=== PATIENT | male | born 1975 | race African-American/Black ===

== ENCOUNTER 2019-03-27 18:45 | Emergency (ER) | payer MEDICAID ==
[~2019-03-27] VITALS: Ht 180.3 cm; Wt 102.0 kg
[2019-03-27] MEDS ORDERED: MORPHINE SULFATE 4 MG/ML CPJ (NOT FOR IM USE) IV STA (20:11)
[2019-03-27] MEDS ORDERED: SODIUM CHLORIDE 0.9% 1,000 ML IV ONE (20:11)
[2019-03-27] MEDS ORDERED: FAMOTIDINE 20MG/2ML VIAL IV STA (20:11)
[2019-03-27] MEDS ORDERED: ONDANSETRON HCL 4MG/2ML INJ IV STA (20:11)
[2019-03-27 21:24] LABS: BASOPHILS % 0.6 % (0.0-2.0); EOSINOPHILS % 0.1 % (0.0-5.0); HEMATOCRIT. 35.2 % (42.0-52.0); HEMOGLOBIN. 11.5 g/dL (14.0-18.0); LYMPHOCYTES % 19.5 % (20.0-50.0); MEAN CORPUSCULAR VOLUME 85.6 fL (80.0-94.0); MEAN PLATELET VOLUME 8.7 fl (7.4-10.4); MONOCYTES % 4.9 % (2.0-8.0); NEUTROPHILS % 74.9 % (40.0-76.0); PLATELET 214 x1000/uL (130-400); RED BLOOD CELL COUNT 4.11 mill/uL (4.7-6.1); RED CELL DISTRIBUTION WIDTH 13.7 % (11.6-14.6)
[2019-03-27 21:27] LABS: CHLORIDE 109 mEq/L (98-107)
[2019-03-27 21:31] LABS: ETHANOL BLOOD < 10 mg/dL
[2019-03-27] MEDS ORDERED: SODIUM CHLORIDE 0.9% 1,000 ML IV NR (21:48)
[2019-03-27] MEDS ORDERED: IOHEXOL-300 100 ML BOTTLE ONE (22:23)
[2019-03-27 23:38] VITALS: BP 112/76
== END 2019-03-28 02:04 | disposition home or self-care (01) ==
LOC: ER 19:20
DX: R10.0 Acute abdomen (principal); E86.0 Dehydration; K44.9 Diaphragmatic hernia without obstruction or gangrene; D64.9 Anemia, unspecified
CPT/HCPCS: 36415; 74177; 80053; 80320; 83605; 83690; 84484; 85025; 93005; 96361; 96374; 96375; 99284; J2270; J2405; J3490; J7030; Q9967; G0480